=== PATIENT | male | born 1965 | race Hispanic/Latino ===

== ENCOUNTER 2022-03-11 02:22 | Inpatient (IN) | payer MEDICARE ==
[2022-03-11] MEDS ORDERED: ALBUTEROL 2.5 MG/3 ML NEBU IH ONE (05:59)
[2022-03-11] MEDS ORDERED: IPRATROPIUM 0.02% NEBU 2.5 ML IH ONE (05:59)
[2022-03-11 06:05] LABS: Color,Urine Straw (Yellow)
[2022-03-11 06:06] LABS: Granular Casts,Urine 6 /LPF; Mucus,Urine FEW /HPF
[2022-03-11 06:12] LABS: Amphetamine Screen,Urine PRESUMPTIVE POSITIVE; Benzodiazepines Screen,Urine PRESUMPTIVE POSITIVE; Cannabinoid Screen,Urine PRESUMPTIVE NEGATIVE; Cocaine Screen,Urine PRESUMPTIVE NEGATIVE; Methadone Screen,Urine PRESUMPTIVE NEGATIVE; Opiate Screen,Urine PRESUMPTIVE NEGATIVE
[2022-03-11 06:28] LABS: Basophils % (Auto) 0.3 % (0.0-1.8); Eosinophils % (Auto) 0.4 % (0.0-4.3); Hemoglobin 12.2 gm/dl (11.8-15.2); Lymphocytes # (Auto) 1.1 K/mm3 (1.2-5.4); Lymphocytes % (Auto) 16.5 % (13.4-35.0); Mean Corpuscular HGB Conc 32 % (32-34); Mean Corpuscular Volume 97 fl (84-94); Monocytes # (Auto) 0.6 K/mm3 (0.0-0.8); Monocytes % (Auto) 9.5 % (0.0-7.3); Platelet Count 202 K/mm3 (140-440); Red Cell Distribution Width 19.8 % (13.2-15.2)
[2022-03-11 06:46] LABS: Blood Urea Nitrogen 10 mg/dL (9-20); Calcium 8.7 mg/dL (8.4-10.2); Hemolysis Index 5
--- NOTE | 2022-03-11 07:01 | Emergency Department Report ---
ED Shortness of Breath HPI - General Chief Complaint: Overdose Stated Complaint: RESPITORY DISTRESS Time Seen by Provider: 03/11/22 06:54 Source: patient, EMS Mode of arrival: Stretcher Limitations: No Limitations, Other - History of Present Illness Initial Comments: 56-year-old male with history of COPD and alcohol abuse presents to the emergency department after being found blue and unresponsive this morning per EMS. Patient was given 2 mg of Narcan, and woke up immediately. Patient denies using drugs. Patient reports that he was having a COPD exacerbation last night, and although he took albuterol, he still "passed out". Patient reports similar in the past. Patient denies depression, suicidal ideations, or homicidal ideations. Denies intentional harm. Patient is alert and oriented, now, and reports improvement of his shortness of breath with albuterol and Atrovent, given to him here. However, patient complains of severe, sharp, right lower quadrant pain which is nonradiating for the last 4 days. Patient denies alleviating or aggravating factors in regards to the abdominal pain. Patient denies headache, nausea, vomiting, constipation, or fever. Patient denies dysuria or other symptoms. - Related Data Home Medications Medication Instructions Recorded Confirmed Last Taken ALPRAZolam [Xanax TAB] 1 mg PO BID PRN 03/11/22 03/11/22 Unknown Metoprolol Tartrate [Lopressor] 25 mg PO DAILY 03/11/22 03/11/22 Unknown Sertraline HCl [Zoloft] 100 mg PO DAILY 03/11/22 03/11/22 Unknown Tamsulosin [Flomax] 0.4 mg PO QDAY 03/11/22 03/11/22 Unknown Trazodone HCl 100 mg PO DAILY 03/11/22 03/11/22 Unknown Allergies Allergy/AdvReac Type Severity Reaction Status Date / Time No Known Allergies Allergy Verified 11/04/18 23:41 ED Review of Systems ROS: Stated complaint: RESPITORY DISTRESS Other details as noted in HPI Comment: All other systems reviewed and negative Constitutional: denies: chills, fever Eyes: denies: eye pain, eye discharge, vision change ENT: denies: ear pain, throat pain Respiratory: shortness of breath, wheezing. denies: cough Cardiovascular: denies: chest pain, palpitations Endocrine: no symptoms reported Gastrointestinal: abdominal pain. denies: nausea, diarrhea Genitourinary: denies: urgency, dysuria Musculoskeletal: denies: back pain, joint swelling, arthralgia Skin: denies: rash, lesions Neurological: other (Unresponsiveness resolved now.). denies: headache, weakness, paresthesias Psychiatric: denies: anxiety, depression Hematological/Lymphatic: denies: easy bleeding, easy bruising ED Past Medical Hx - Past Medical History Previous Medical History?: Yes Hx Hypertension: Yes Hx Psychiatric Treatment: Yes (anxiety and depression etoh detox) Hx Asthma: Yes Hx COPD: Yes - Surgical History Past Surgical History?: Yes Additional Surgical History: right hand and thumb - Social History Smoking Status: Current Every Day Smoker Substance Use Type: None - Medications Home Medications: Home Medications Medication Instructions Recorded Confirmed Last Taken Type ALPRAZolam [Xanax TAB] 1 mg PO BID PRN 03/11/22 03/11/22 Unknown History Metoprolol Tartrate [Lopressor] 25 mg PO DAILY 03/11/22 03/11/22 Unknown History Sertraline HCl [Zoloft] 100 mg PO DAILY 03/11/22 03/11/22 Unknown History Tamsulosin [Flomax] 0.4 mg PO QDAY 03/11/22 03/11/22 Unknown History Trazodone HCl 100 mg PO DAILY 03/11/22 03/11/22 Unknown History ED Physical Exam - General Limitations: No Limitations, Other General appearance: alert, in no apparent distress - Head Head exam: Present: atraumatic, normocephalic - Eye Eye exam: Present: normal appearance, PERRL, EOMI - ENT ENT exam: Present: normal exam, mucous membranes moist - Neck Neck exam: Present: normal inspection. Absent: tenderness - Respiratory Respiratory exam: Present: normal lung sounds bilaterally, other (Tachypnea). Absent: respiratory distress, wheezes, rales, rhonchi - Cardiovascular Cardiovascular Exam: Present: regular rate, normal rhythm. Absent: systolic murmur, diastolic murmur, rubs, gallop - GI/Abdominal GI/Abdominal exam: Present: soft, tenderness, normal bowel sounds. Absent: distended, guarding, rebound (Right lower quadrant tenderness), pulsatile mass - Rectal Rectal exam: Present: deferred - Extremities Exam Extremities exam: Present: normal inspection - Back Exam Back exam: Present: normal inspection. Absent: CVA tenderness (L) - Neurological Exam Neurological exam: Present: alert, oriented X3, CN II-XII intact - Psychiatric Psychiatric exam: Present: normal affect, normal mood - Skin Skin exam: Present: warm, dry, intact, normal color. Absent: rash ED Course Vital Signs 03/11/22 03/11/22 03/11/22 02:22 06:07 06:24 Temperature 98 F Pulse Rate 88 Pulse Rate [ 103 H Bilateral Throughout] Respiratory 18 Rate Respiratory 25 H Rate [Bilateral Throughout] Blood Pressure 100/64 Blood Pressure [Left] O2 Sat by Pulse 92 97 Oximetry 03/11/22 03/11/22 03/11/22 07:08 07:16 07:30 Temperature Pulse Rate 107 H 95 H 99 H Pulse Rate [ Bilateral Throughout] Respiratory 18 17 23 Rate Respiratory Rate [Bilateral Throughout] Blood Pressure Blood Pressure [Left] O2 Sat by Pulse 96 97 97 Oximetry 03/11/22 03/11/22 03/11/22 08:06 08:16 08:22 Temperature Pulse Rate 103 H 93 H 92 H Pulse Rate [ Bilateral Throughout] Respiratory 25 H 18 15 Rate Respiratory Rate [Bilateral Throughout] Blood Pressure 130/78 Blood Pressure 132/83 [Left] O2 Sat by Pulse 96 99 Oximetry 03/11/22 03/11/22 03/11/22 08:30 08:46 09:00 Temperature Pulse Rate 95 H 93 H 93 H Pulse Rate [ Bilateral Throughout] Respiratory 22 20 22 Rate Respiratory Rate [Bilateral Throughout] Blood Pressure 130/78 131/76 131/76 Blood Pressure [Left] O2 Sat by Pulse 94 95 94 Oximetry 03/11/22 09:16 Temperature Pulse Rate 94 H Pulse Rate [ Bilateral Throughout] Respiratory 19 Rate Respiratory Rate [Bilateral Throughout] Blood Pressure 134/77 Blood Pressure [Left] O2 Sat by Pulse 95 Oximetry ED Medical Decision Making - Lab Data Result diagrams: 03/11/22 06:03 03/11/22 06:03 - Radiology Data Radiology results: report reviewed CT abdomen pelvis:IMPRESSION: 1. No acute abdominopelvic process demonstrated. Specifically, no evidence to indicate appendicitis. 2. Indeterminate left adrenal nodule, possibly an adenoma. Routine adrenal protocol CT follow-up is recommended to complete the evaluation. Signer Name: Saleem Colbert MD - Medical Decision Making Is a 56-year-old male with history of COPD, alcohol abuse, anxiety and depre ssion who presented to the emergency department after being found unresponsive and blue with presumptive diagnosis of opiate overdose, as he responded to Narcan IV. Patient is alert and oriented on exam, but complains of severe right lower quadrant pain for the last 4 days. Vital signs are essentially unremarkable except for tachypnea. Physical exam is remarkable for mild tachypnea and right lower quadrant tenderness. Lab work was concerning for elevated PCO2, which is consistent with his history of COPD. Additionally, his urine toxicology was positive for amphetamines and for benzodiazepines, which could have contributed to his condition on EMS arrival. His chest x-ray does not show any acute findings, and his abdominal CT scan does not show any findings that could explain his right lower quadrant pain. Patient will be discharged home with diagnoses of abdominal pain NOS and COPD exacerbation with possible unintentional overdose. Critical care attestation.: If time is entered above; I have spent that time in minutes in the direct care of this critically ill patient, excluding procedure time. ED Disposition Clinical Impression: COPD (chronic obstructive pulmonary disease) Qualifiers: COPD type: COPD with acute exacerbation Qualified Code(s): J44.1 - Chronic obstructive pulmonary disease with (acute) exacerbation Alcohol withdrawal Qualifiers: Complication of substance-induced condition: with unspecified complication Qualified Code(s): F10.939 - Alcohol use, unspecified with withdrawal, unspecified Disposition: 09 ADMITTED INPATIENT Is pt being admited?: Yes Condition: Stable Instructions: Chronic Obstructive Pulmonary Disease (ED) Referrals: PRIMARY CAREMD [Primary Care Provider] - 3-5 Days Time of Disposition: 13:04
[2022-03-11 07:04] LABS: BUN/Creatinine Ratio 17
--- NOTE | 2022-03-11 07:39 | XRay Report ---
CHEST 1 VIEW INDICATION / CLINICAL INFORMATION: shortness of breath. COMPARISON: 11/04/2018 FINDINGS: SUPPORT DEVICES: None. HEART / MEDIASTINUM: No significant abnormality. LUNGS / PLEURA: The lungs are hyperinflated suggesting COPD. No superimposed acute pulmonary or pleur al disease is noted. Overall appearance is stable compared with older exam. No pneumothorax. ADDITIONAL FINDINGS: No significant additional findings. IMPRESSION: 1. Hyperinflation consistent with COPD. No acute superimposed disease noted. Signer Name: Nicole Church MD Signed: 03/11/2022 7:35 AM Workstation Name: [id number]
--- NOTE | 2022-03-11 08:08 | Cat Scan Report ---
CT ABDOMEN AND PELVIS WITH CONTRAST INDICATION / CLINICAL INFORMATION: rlq pain r/o appendicitis. TECHNIQUE: Axial CT images were obtained through the abdomen and pelvis after IV contrast. All CT sc ans at this location are performed using CT dose reduction for ALARA by means of automated exposure c ontrol. COMPARISON: None available. FINDINGS: LOWER CHEST: No significant abnormality. LIVER: No significant abnormality. GALLBLADDER: No significant abnormality. BILE DUCTS: No significant abnormality. PANCREAS: No significant abnormality. SPLEEN: No significant abnormality. ADRENALS: 2.4 cm left adrenal nodule. RIGHT KIDNEY / URETER: No significant abnormality. LEFT KIDNEY / URETER: No significant abnormality. STOMACH / SMALL BOWEL: No significant abnormality. COLON: Diverticulosis distally. No acute inflammatory change. APPENDIX: No significant abnormality. PERITONEUM: No free fluid. No free air. No fluid collection. LYMPH NODES: No significant adenopathy. AORTA / ARTERIES: Atherosclerosis. IVC / VEINS: No significant abnormality. URINARY BLADDER: No significant abnormality. REPRODUCTIVE ORGANS: No significant abnormality. ADDITIONAL FINDINGS: None. SKELETAL SYSTEM: No significant abnormality. IMPRESSION: 1. No acute abdominopelvic process demonstrated. Specifically, no evidence to indicate appendicitis. 2. Indeterminate left adrenal nodule, possibly an adenoma. Routine adrenal protocol CT follow-up is r ecommended to complete the evaluation. Signer Name: Saleem Colbert MD Signed: 03/11/2022 8:04 AM Workstation Name: [id number]
[2022-03-11 08:45] LABS: Alanine Aminotransferase 55 units/L (7-56); Albumin 3.7 g/dL (3.9-5)
[2022-03-11 09:06] LABS: Bilirubin,Direct < 0.2 mg/dL (0-0.2)
[2022-03-11] MEDS ORDERED: LORazepam 1 MG TAB PO ONE (09:47)
[2022-03-11] MEDS ORDERED: ONDANSETRON 4 MG/2 ML INJ IV ONE (09:47)
[2022-03-11] MEDS ORDERED: HYDROmorphone 0.5 MG/0.5 ML INJ IV PRN (12:08)
[2022-03-11] MEDS ORDERED: ONDANSETRON 4 MG/2 ML INJ IV PRN (12:08)
--- NOTE | 2022-03-11 12:08 | History and Physical Report ---
History of Present Illness Chief complaint: Confused and unresponsive History of present illness: 56 YO Male with COPD on Home Oxygen @4l VIA NC, MDD, ROHIT, ETOH Dependence, Nicotine Dependence presents to ED for evaluation. Patient has diminished cognition and only provides minimal history. Patient reports "I passed out". Patient also acknowledges abdominal discomfort over the last 4 days. Patient was found down and unresponsive. EMS was notified and upon arrival the patient was found to be in distress and treated with 2 mg of Narcan with improvement in symptoms. Patient transported to [facility] for further care and evaluation of the aforementioned symptoms. The patient was seen and evaluated in the emergency department. All lab and imaging studies reviewed. Patient found to be agitated, tremulous, diaphoretic, incoherent, complaining of abdominal discomfort. Patient found to have clinical symptoms consistent with delirium tremens, alcohol withdrawal syndrome, volume depletion, as well as metabolic encephalopathy. Patient admitted to medical floor due to increased risk of worsening symptoms after medical stabilization. Patient treated with IV fluid resuscitation therapy and initiation of CIWA protocol. No reports of fever, chills, chest pain, palpitation, adductive cough, skin rash, recent co ntact, trauma, or known exposure to COVID-19. Prior admission on 11/05/2018 reviewed. All medication listed at time of admission has been reconciled. Advanced care planning conducted in ED. Past History Past Medical History: COPD, other (See HPI) Past Surgical History: Other (Hand and thumb surgery) Social history: , lives with family, smoking, alcohol abuse Family history: hypertension Medications and Allergies Allergies Allergy/AdvReac Type Severity Reaction Status Date / Time No Known Allergies Allergy Verified 11/04/18 23:41 Home Medications Medication Instructions Recorded Confirmed Last Taken Type ALPRAZolam [Xanax TAB] 1 mg PO BID PRN 03/11/22 03/11/22 Unknown History Metoprolol Tartrate [Lopressor] 25 mg PO DAILY 03/11/22 03/11/22 Unknown History Sertraline HCl [Zoloft] 100 mg PO DAILY 03/11/22 03/11/22 Unknown History Tamsulosin [Flomax] 0.4 mg PO QDAY 03/11/22 03/11/22 Unknown History Trazodone HCl 100 mg PO DAILY 03/11/22 03/11/22 Unknown History Review of Systems ROS unobtainable: due to mental status Exam - Constitutional Vitals: Temp Pulse Resp BP Pulse Ox 98 F 94 H 19 134/77 95 03/11/22 02:22 03/11/22 09:16 03/11/22 09:16 03/11/22 09:16 03/11/22 09:16 General appearance: Present: mild distress - EENT Eyes: Present: PERRL ENT: hearing intact, clear oral mucosa - Neck Neck: Present: supple, normal ROM - Respiratory Respiratory effort: normal Respiratory: bilateral: CTA - Cardiovascular Rhythm: regular (Tachycardia) - Extremities Extremities: pulses symmetrical, No edema Peripheral Pulses: within normal limits - Abdominal General gastrointestinal: Present: soft, non-tender, non-distended, normal bowel sounds Male genitourinary: Present: normal - Integumentary Integumentary: Present: clear, clammy, decreased turgor - Musculoskeletal Musculoskeletal: generalized weakness - Psychiatric Psychiatric: no appropriate mood/affect, no memory intact, agitated - Neurologic Neurologic: CNII-XII intact, no focal deficits, moves all extremities, no gait normal Results - Labs CBC & Chem 7: 03/11/22 06:03 03/11/22 06:03 Labs: Abnormal lab results 03/11/22 03/11/22 03/11/22 Range/Units 06:03 06:03 06:03 MCV (84-94) fl RDW (13.2-15.2) % Kidder % (Auto) (0.0-7.3) % Lymph # (Auto) (1.2-5.4) K/mm3 Seg Neutrophils % (40.0-70.0) % Chloride 92.7 L (98-107) mmol/L Carbon Dioxide 37 H (22-30) mmol/L Creatinine 0.6 L (0.8-1.3) mg/dL Glucose 116 H (75-100) mg/dL AST (5-40) units/L Total Protein (6.3-8.2) g/dL Albumin (3.9-5) g/dL Salicylates 1.9 L (2.8-20.0) mg/dL Acetaminophen 5.0 L (10.0-30.0) ug/mL Plasma/Serum Alcohol (0-0.07) % 09/18/22 09/18/22 09/18/22 Range/Units 06:03 06:03 07:32 MCV 97 H (84-94) fl RDW 19.8 H (13.2-15.2) % Kidder % (Auto) 9.5 H (0.0-7.3) % Lymph # (Auto) 1.1 L (1.2-5.4) K/mm3 Seg Neutrophils % 73.3 H (40.0-70.0) % Chloride (98-107) mmol/L Carbon Dioxide (22-30) mmol/L Creatinine (0.8-1.3) mg/dL Glucose (75-100) mg/dL AST 60 H (5-40) units/L Total Protein 5.4 L (6.3-8.2) g/dL Albumin 3.7 L (3.9-5) g/dL Salicylates (2.8-20.0) mg/dL Acetaminophen (10.0-30.0) ug/mL Plasma/Serum Alcohol 0.13 H (0-0.07) % Assessment and Plan - Patient Problems (1) Delirium tremens Current Visit: Yes Status: Acute Plan to address problem: CIWA protocol: Banana bag, IV fluid resuscitation therapy, seizure precaution, aspiration precautions, fall precautions, benzodiazepine therapy as clinically indicated (2) Alcohol withdrawal syndrome Current Visit: Yes Status: Acute Qualifiers: Complication of substance-induced condition: with delirium Qualified Code(s): F10.931 - Alcohol use, unspecified with withdrawal delirium Plan to address problem: IV for resuscitation therapy, banana bag, supportive care, continue medical management. Telemetry monitoring. Antiemetic therapy as clinically indicated. (3) COPD (chronic obstructive pulmonary disease) Current Visit: Yes Status: Acute Plan to address problem: Supplemental oxygen, pulse oximetry, nebulizer therapy, bronchodilator therapy as clinically indicated. No acute exacerbation at this time. Continue to monitor. (4) Volume depletion Current Visit: Yes Status: Acute Plan to address problem: IV fluid resuscitation therapy, BMP, repeat BMP in a.m., monitor fluid balance. (5) Nicotine dependence Current Visit: Yes Status: Acute Qualifiers: Nicotine product type: cigarettes Substance use status: in withdrawal Qualified Code(s): F17.213 - Nicotine dependence, cigarettes, with withdrawal Plan to address problem: Smoking cessation counseling, supportive care, nicotine transdermal patch daily, remove nightly. (6) Major depression Current Visit: Yes Status: Acute Plan to address problem: Continue medical management, cognitive behavioral therapy, mental health team consulted. (7) Generalized anxiety disorder Current Visit: Yes Status: Acute Plan to address problem: Benzodiazepine therapy as clinically indicated, mental health team consulted. (8) DVT prophylaxis Current Visit: Yes Status: Acute Plan to address problem: SCD to bilateral lower extremities while in bed (9) Advance care planning Current Visit: Yes Status: Acute Plan to address problem: Disease education data, care plan discussed, diagnoses discussed, prognosis discussed, patient is full code, +30 minutes. (10) Preventative health care Current Visit: Yes Status: Acute Plan to address problem: Patient instructed to follow-up with Alcoholics Anonymous at discharge, outpatient follow-up with primary care physician for all age and risk factor appropriate screening test. +30 minutes.
[2022-03-11] MEDS ORDERED: LORazepam 2 MG/ML VIAL IV PRN (12:12)
[2022-03-11] MEDS ORDERED: THIAMINE 100 MG, FOLIC ACID 1 MG, MULTIPLE VITAMIN INJ, ADULT 10 ML in SODIUM CHLORIDE ... IV ONE (13:00)
[2022-03-11] MEDS: NICOTINE 14 MG/24 HR PATCH TD SCH (13:35)
[2022-03-11] MEDS: GABAPENTIN 300 MG CAP PO SCH ×2 (13:35→21:49)
--- NOTE | 2022-03-11 15:31 | Consultation ---
History of Present Illness - Reason for Consult Consult date: 03/11/22 Reason for consult: Overdose - Chief Complaint Chief complaint: Confused and unresponsive - History of Present Psychiatric Illness ED Note: 56-year-old male with history of COPD and alcohol abuse presents to the emergency department after being found blue and unresponsive this morning per EMS. Patient was given 2 mg of Narcan, and woke up immediately. Patient denies using drugs. Patient reports that he was having a COPD exacerbation last night, and although he took albuterol, he still "passed out". Patient reports similar in the past. Patient denies depression, suicidal ideations, or homicidal ideations. Denies intentional harm. Patient is alert and oriented, now, and reports improvement of his shortness of breath with albuterol and Atrovent, given to him here. However, patient complains of severe, sharp, right lower quadrant pain which is nonradiating for the last 4 days. Patient denies alleviating or aggravating factors in regards to the abdominal pain. Patient denies headache, nausea, vomiting, constipation, or fever. Patient denies dysuria or other symptoms. Patient is a 56 year-old male with history of MDD, ROHIT, and polysubstance abuse who presents to ER via EMS after suspected overdose. Patient arrives to ER because "I had a seizure last night and my heart stopped beating," while administering a breathing treatment. Patient denies history of seizures but endorses alcohol use of 1/2 pint liquor and 2-3 beers a day for several years. Patient also reports history of abusing meth, cocaine, and marijuana years ago. Patient reports being depressed since being diagnosed with COPD in 2017. Patient reports 2 suicide attempts "in early " with sleeping pills, but denies suicidal ideation in the last 10 months. Patient reports being seen by outpatient psychiatry and is compliant with medications zoloft 100 mg qd and xanax qd. Patient denies SI HI AVH at this time. Patient reports interest in reducing alcohol intake and entering alcohol rehabilitation program. PAST PSYCHIATRIC HISTORY: Diagnoses: Major depressive disorder, generalized anxiety disorder, alcohol abuse Suicide attempts or Self-harm behavior: Yes over 20 years ago Prior psychiatric hospitalizations: Yes Substance Abuse history: Yes Previous psychiatric medications tried: Zoloft, xanax Outpatient treatment: Yes Family Psychiatric History: None reported SOCIAL HISTORY Marital Status: Single Living Arrangements: Alone Employment Status: Disability Access to guns/weapons: Denies Education: Some college History of Abuse: Yes Legal History: Denies MENTAL STATUS EXAMINATION General Appearance and Behavior: Age appropriate, wearing appropriate clothes, cooperative, polite with questioning, fair eye contact Cooperation: Cooperative Psychomotor Behavior: Psychomotor normal Mood: depressed Affect and affective range: congruent with stated affect Thought Process: Goal oriented Thought Content: Reality-based Speech: Normal volume, Regular rate and rhythm Suicidal Ideation: Denies Homicidal Ideation: Denies Hallucination: Denies Delusions: Denies Impulse Control: Normal Insight and Judgment: Normal Memory: Intact Attention: Attentive Orientation: Alert and oriented Diagnoses: Alcohol abuse disorder Major depressive disorder Anxiety disorder TREATMENT: - Enroll in drug rehabilitation program for alcohol abuse - Continue psychiatric medication management in outpatient setting Risks, benefits and alternatives of medications discussed with the patient, questions answered and consent obtained from patient. The patient should be compliant with medications, not to use drugs, and not to drink alcohol. The patient understands that if suicidal ideas, homicidal ideas or any endangering feeling arise, the patient should seek assistance including, but not limited to crisis hotline, and emergency room. PSYCHOTHERAPY: Supportive psychotherapy provided MEDICAL: Per primary team DELIRIUM PRECAUTIONS: Please re-orient patient frequently, keep lights on during the day, and minimize benzodiazepines and opiates as these medications could worsen patient's confusion. COLLECTIONS TECHNICIAN: Defer to primary DISPOSITION: Do not recommend acute inpatient psychiatric hospitalization at this time. Mental health lamination technician will provide outpatient psychiatric resources and information on drug rehabilitation programs. FOLLOW-UP: Will sign off. Thank you for the consult. Please contact with any questions and/or concerns. Case staffed with Dr. Molly Beltran. Medications and Allergies Allergies Allergy/AdvReac Type Severity Reaction Status Date / Time No Known Allergies Allergy Verified 11/04/18 23:41 Home Medications Medication Instructions Recorded Confirmed Last Taken Type ALPRAZolam [Xanax TAB] 1 mg PO BID PRN 03/11/22 03/11/22 Unknown History Metoprolol Tartrate [Lopressor] 25 mg PO DAILY 03/11/22 03/11/22 Unknown History Sertraline HCl [Zoloft] 100 mg PO DAILY 03/11/22 03/11/22 Unknown History Tamsulosin [Flomax] 0.4 mg PO QDAY 03/11/22 03/11/22 Unknown History Trazodone HCl 100 mg PO DAILY 03/11/22 03/11/22 Unknown History Active Meds: Active Medications Acetaminophen (Acetaminophen 325 Mg Tab) 650 mg PO Q4H PRN PRN Reason: Pain MILD(1-3)/Fever >100.5/[place] Albuterol (Albuterol 2.5 Mg/3 Ml Nebu) 2.5 mg IH Q4H PRN PRN Reason: Shortness Of Breath Amlodipine Besylate (Amlodipine 10 Mg Tab) 10 mg PO DAILY [facility] Buspirone HCl (Buspirone 5 Mg Tab) 7.5 mg PO BID [facility] Folic Acid (Folic Acid 1 Mg Tab) 1 mg PO QDAY [facility] Gabapentin (Gabapentin 300 Mg Cap) 300 mg PO Q8HR [facility] Last Admin: 03/11/22 13:35 Dose: 300 mg Hydromorphone HCl (Hydromorphone 0.5 Mg/0.5 Ml Inj) 0.5 mg IV Q13H PRN PRN Reason: Pain , Severe (7-10) Sodium Chloride (Nacl 0.9% 1000 Ml) 1,000 mls @ 150 mls/hr IV DIRECT [facility]ICA Thiamine HCl 100 mg/ Folic Acid 1 mg/ Multivitamins/Minerals 10 ml/ Sodium Ch loride 1,011.2 mls @ 250 mls/hr IV ONCE ONE Stop: 03/11/22 17:02 Last Admin: 03/11/22 12:46 Dose: 250 mls/hr Lorazepam (Lorazepam 2 Mg/Ml Vial) 2 mg IV Q1H PRN PRN Reason: CIWA-Ar 8-15 Lorazepam (Lorazepam 2 Mg/Ml Vial) 4 mg IV Q1H PRN PRN Reason: CIWA-Ar 16-25 Multivitamins (Multivitamins ,Therapeutic Tab) 1 each PO ONCE ONE Stop: 03/12/22 12:01 Nicotine (Nicotine 14 Mg/24 Hr Patch) 14 mg TD DAILY [facility] Last Admin: 03/11/22 13:35 Dose: 14 mg Ondansetron HCl (Ondansetron 4 Mg/2 Ml Inj) 4 mg IV Q8H PRN PRN Reason: Nausea And Vomiting Oxycodone/Acetaminophen (Oxycodone /Acetaminophen 5-325mg Tab) 1 tab PO Q16H PRN PRN Reason: Pain, Moderate (4-6) Pantoprazole Sodium (Pantoprazole 40 Mg Tab) 40 mg PO QDAY CHICA Paroxetine HCl (Paroxetine 20 Mg Tab) 20 mg PO DAILY [facility] Sodium Chloride (Sodium Chloride 0.9% 10 Ml Flush Syringe) 10 ml IV BID CHICA Sodium Chloride (Sodium Chloride 0.9% 10 Ml Flush Syringe) 10 ml IV PRN PRN PRN Reason: LINE FLUSH Thiamine HCl (Thiamine 100 Mg Tab) 100 mg PO ONCE ONE Stop: 03/12/22 12:01 Trazodone HCl (Trazodone 100 Mg Tab) 100 mg PO QHS [facility] Mental Status Exam - Vital signs Last Vital Signs Temp 98 F 03/11/22 02:22 Pulse 94 H 03/11/22 09:16 Resp 19 03/11/22 09:16 BP 134/77 03/11/22 09:16 Pulse Ox 95 03/11/22 09:16 Results Result Diagrams: 03/11/22 06:03 03/11/22 06:03 Abnormal lab results 03/11/22 03/11/22 03/11/22 Range/Units 06:03 06:03 06:03 MCV (84-94) fl RDW (13.2-15.2) % [place] % (Auto) (0.0-7.3) % Lymph # (Auto) (1.2-5.4) K/mm3 Seg Neutrophils % (40.0-70.0) % Chloride 92.7 L (98-107) mmol/L Carbon Dioxide 37 H (22-30) mmol/L Creatinine 0.6 L (0.8-1.3) mg/dL Glucose 116 H (75-100) mg/dL AST (5-40) units/L Total Protein (6.3-8.2) g/dL Albumin (3.9-5) g/dL Salicylates 1.9 L (2.8-20.0) mg/dL Acetaminophen 5.0 L (10.0-30.0) ug/mL Plasma/Serum Alcohol (0-0.07) % 03/11/22 03/11/22 03/11/22 Range/Units 06:03 06:03 07:32 MCV 97 H (84-94) fl RDW 19.8 H (13.2-15.2) % [place] % (Auto) 9.5 H (0.0-7.3) % Lymph # (Auto) 1.1 L (1.2-5.4) K/mm3 Seg Neutrophils % 73.3 H (40.0-70.0) % Chloride (98-107) mmol/L Carbon Dioxide (22-30) mmol/L Creatinine (0.8-1.3) mg/dL Glucose (75-100) mg/dL AST 60 H (5-40) units/L Total Protein 5.4 L (6.3-8.2) g/dL Albumin 3.7 L (3.9-5) g/dL Salicylates (2.8-20.0) mg/dL Acetaminophen (10.0-30.0) ug/mL Plasma/Serum Alcohol 0.13 H (0-0.07) % All other labs normal.
[2022-03-11] MEDS: ALBUTEROL 2.5 MG/3 ML NEBU IH PRN (16:16)
[2022-03-11] MEDS: SODIUM CHLORIDE 0.9% 1000 ML 1,000 ML IV SCH (16:34)
[2022-03-11] MEDS: LORazepam 2 MG/ML VIAL IV PRN (20:49)
[2022-03-11] MEDS: traZODone 100 MG TAB PO SCH (21:49)
[2022-03-11] MEDS: busPIRone 5 MG TAB PO SCH (21:49)
[2022-03-12] MEDS: GABAPENTIN 300 MG CAP PO SCH ×3 (05:50→22:04)
[2022-03-12] MEDS: LORazepam 2 MG/ML VIAL IV PRN ×4 (05:50→22:04)
[2022-03-12] MEDS: ALBUTEROL 2.5 MG/3 ML NEBU IH PRN ×3 (06:00→21:20)
[2022-03-12] MEDS: SODIUM CHLORIDE 0.9% 1000 ML 1,000 ML IV SCH (06:39)
[2022-03-12 06:47] LABS: Blood Urea Nitrogen 9 mg/dL (9-20); Hemolysis Index 71
[2022-03-12 07:04] LABS: BUN/Creatinine Ratio 18
--- NOTE | 2022-03-12 09:48 | Progress Note ---
Assessment and Plan Assessment and plan: 56 YO Male with COPD on Home Oxygen @4l VIA [place], MDD, ROHIT, ETOH Dependence, Nicotine Dependence presents to ED for evaluation of diminished cognition and syncope. Patient also reports abdominal discomfort over the last 4 days. Patient was found down and unresponsive. EMS was notified and upon arrival the patient was found to be in distress and treated with 2 mg of Narcan with improvement in symptoms. Patient transported to [facility] for further care and evaluation of the aforementioned symptoms. The patient was seen and evaluated in the emergency department. All lab and imaging studies reviewed. Patient admitted with diagnosis of delirium tremens, alcohol withdrawal syndrome, volume depletion, as well as metabolic encephalopathy. Delirium tremens Alcohol withdrawal syndrome Polysubstance abuse COPD, compensated Volume depletion Nicotine dependence Major depression Generalized anxiety disorder 03/12/2022. The patient's most recent CIWA score was 9. Patient continues to be tremulous and unsteady. Continue CIWA protocol. Patient denies any suicidal ideation in the last 10 months. Psychiatry reports that the patient is being seen by outpatient psychiatry and is compliant with medications zoloft 100 mg qd and xanax qd. Patient denies SI HI AVH at this time. Patient reports interest in reducing alcohol intake and entering alcohol rehabilitation program. UDS was also positive for amphetamines. History Interval history: No new issues overnight Hospitalist Physical - Constitutional Vitals: Temp Pulse Resp BP Pulse Ox 98.7 F 94 H 22 168/94 98 03/11/22 19:35 03/12/22 06:00 03/12/22 06:00 03/11/22 20:45 03/12/22 05:49 General appearance: Present: no acute distress - EENT Eyes: Present: PERRL, EOM intact ENT: hearing intact, clear oral mucosa, dentition normal - Neck Neck: Present: supple, normal ROM - Respiratory Respiratory effort: normal Respiratory: bilateral: CTA - Cardiovascular Rhythm: regular Heart Sounds: Present: S1 & S2. Absent: gallop, rub - Extremities Extremities: no ischemia, No edema, Full ROM - Abdominal General gastrointestinal: soft, non-tender, non-distended, normal bowel sounds - Integumentary Integumentary: Present: clear, warm, dry - Neurologic Neurologic: CNII-XII intact, moves all extremities Results - Labs CBC & Chem 7: 03/11/22 06:03 03/12/22 05:26 Labs: Laboratory Last Values WBC 6.4 K/mm3 (4.5-11.0) 03/11/22 06:03 RBC 3.90 M/mm3 (3.65-5.03) 03/11/22 06:03 Hgb 12.2 gm/dl (11.8-15.2) 03/11/22 06:03 Hct 38.0 % (35.5-45.6) 03/11/22 06:03 MCV 97 fl (84-94) H 03/11/22 06:03 MCH 31 pg (28-32) 03/11/22 06:03 MCHC 32 % (32-34) 03/11/22 06:03 RDW 19.8 % (13.2-15.2) H 03/11/22 06:03 Plt Count 202 K/mm3 (140-440) 03/11/22 06:03 Lymph % (Auto) 16.5 % (13.4-35.0) 03/11/22 06:03 [place] % (Auto) 9.5 % (0.0-7.3) H 03/11/22 06:03 Eos % (Auto) 0.4 % (0.0-4.3) 03/11/22 06:03 Baso % (Auto) 0.3 % (0.0-1.8) 03/11/22 06:03 Lymph # (Auto) 1.1 K/mm3 (1.2-5.4) L 03/11/22 06:03 [place] # (Auto) 0.6 K/mm3 (0.0-0.8) 03/11/22 06:03 Eos # (Auto) 0.0 K/mm3 (0.0-0.4) 03/11/22 06:03 Baso # (Auto) 0.0 K/mm3 (0.0-0.1) 03/11/22 06:03 Seg Neutrophils % 73.3 % (40.0-70.0) H 03/11/22 06:03 Seg Neutrophils # 4.7 K/mm3 (1.8-7.7) 03/11/22 06:03 Sodium 140 mmol/L (137-145) 03/12/22 05:26 Potassium 4.4 mmol/L (3.6-5.0) 03/12/22 05:26 Chloride 99.1 mmol/L (98-107) 03/12/22 05:26 Carbon Dioxide 33 mmol/L (22-30) H 03/12/22 05:26 Anion Gap 12 mmol/L 03/12/22 05:26 BUN 9 mg/dL (9-20) 03/12/22 05:26 Creatinine 0.5 mg/dL (0.8-1.3) L 03/12/22 05:26 Estimated GFR > 60 ml/min 03/12/22 05:26 BUN/Creatinine Ratio 18 % 03/12/22 05:26 Glucose 96 mg/dL (75-100) 03/12/22 05:26 Calcium 8.0 mg/dL (8.4-10.2) L 03/12/22 05:26 Total Bilirubin 0.20 mg/dL (0.1-1.2) 03/11/22 07:32 Direct Bilirubin < 0.2 mg/dL (0-0.2) 03/11/22 07:32 Indirect Bilirubin 0.0 mg/dL 03/11/22 07:32 AST 60 units/L (5-40) H 03/11/22 07:32 ALT 55 units/L (7-56) 03/11/22 07:32 Alkaline Phosphatase 99 units/L (35-129) 03/11/22 07:32 Total Protein 5.4 g/dL (6.3-8.2) L 03/11/22 07:32 Albumin 3.7 g/dL (3.9-5) L 03/11/22 07:32 Albumin/Globulin Ratio 2.2 % 03/11/22 07:32 Lipase 20 units/L (13-60) 03/11/22 07:32 Urine Color Straw (Yellow) 03/11/22 02:22 Urine Turbidity Clear (Clear) 03/11/22 02:22 Specific [place] (Man) 1.015 (1.003-1.030) 03/11/22 02:22 Ur Protein (Man) 1+ mg/dL (Negative) 03/11/22 02:22 Ur Ketones (Man) Negative (Negative) 03/11/22 02:22 Ur Nitrite (Man) Negative (Negative) 03/11/22 02:22 Urine Bilirubin (Man) Negative (Negative) 03/11/22 02:22 Leukocyte Esterase (Man) Negative (Negative) 03/11/22 02:22 Urine WBC (Auto) 3.0 /HPF (0.0-6.0) 03/11/22 02:22 Urine RBC (Auto) 1.0 /HPF (0.0-6.0) 03/11/22 02:22 U Epithel Cells (Auto) < 1.0 /HPF (0-13.0) 03/11/22 02:22 Urine RBC (Manual) Negative (Negative) 03/11/22 02:22 Granular Casts 6 /LPF 03/11/22 02:22 Urine Mucus Few /HPF 03/11/22 02:22 Salicylates 1.9 mg/dL (2.8-20.0) L 03/11/22 06:03 Urine Opiates Screen Presumptive negative 03/11/22 02:22 Urine Methadone Screen Presumptive negative 03/11/22 02:22 Acetaminophen 5.0 ug/mL (10.0-30.0) L 03/11/22 06:03 Ur Barbiturates Screen Presumptive negative 03/11/22 02:22 Ur Phencyclidine Scrn Presumptive negative 03/11/22 02:22 Ur Amphetamines Screen Presumptive positive 03/11/22 02:22 U Benzodiazepines Scrn Presumptive positive 03/11/22 02:22 Urine Cocaine Screen Presumptive negative 03/11/22 02:22 U Marijuana (THC) Screen Presumptive negative 03/11/22 02:22 Drugs of Abuse Note Disclamer 03/11/22 02:22 Plasma/Serum Alcohol 0.13 % (0-0.07) H 03/11/22 06:03 So/IV: Voiding Method Condom Catheter Active Medications - Current Medications Current Medications: Generic Name Dose Route Start Last Admin Trade Name Freq PRN Reason Stop Dose Admin Acetaminophen 650 mg 03/11/22 12:08 Acetaminophen 325 Mg Tab PO Q4H PRN Pain MILD(1-3)/Fever >100.5/[place] Albuterol 2.5 mg 03/11/22 12:08 03/12/22 06:00 Albuterol 2.5 Mg/3 Ml Nebu IH 2.5 mg Q4H PRN Administration Shortness Of Breath Amlodipine Besylate 10 mg 03/12/22 10:00 Amlodipine 10 Mg Tab PO DAILY [facility] Buspirone HCl 7.5 mg 03/11/22 22:00 03/11/22 21:49 Buspirone 5 Mg Tab PO 7.5 mg BID CHICA Administration Folic Acid 1 mg 03/12/22 10:00 Folic Acid 1 Mg Tab PO QDAY [facility] Gabapentin 300 mg 03/11/22 14:00 03/12/22 05:50 Gabapentin 300 Mg Cap PO 300 mg Q8HR [facility] Administration Hydromorphone HCl 0.5 mg 03/11/22 12:08 Hydromorphone 0.5 Mg/0.5 Ml Inj IV Q13H PRN Pain , Severe (7-10) Sodium Chloride 1,000 mls @ 150 mls/hr 03/11/22 13:00 03/12/22 06:39 Nacl 0.9% 1000 Ml IV 150 mls/hr DIRECT CHICA Administration Lorazepam 2 mg 03/11/22 12:12 03/12/22 05:50 Lorazepam 2 Mg/Ml Vial IV 2 mg Q1H PRN Administration CIWA-Ar 8-15 Lorazepam 4 mg 03/11/22 12:12 03/11/22 16:28 Lorazepam 2 Mg/Ml Vial IV 4 mg Q1H PRN Administration CIWA-Ar 16-25 Multivitamins 1 each 03/12/22 12:00 Multivitamins ,Therapeutic Tab PO 03/12/22 12:01 ONCE ONE Nicotine 14 mg 03/11/22 13:00 03/11/22 13:35 Nicotine 14 Mg/24 Hr Patch TD 14 mg DAILY CHICA Administration Ondansetron HCl 4 mg 03/11/22 12:08 Ondansetron 4 Mg/2 Ml Inj IV Q8H PRN Nausea And Vomiting Oxycodone/Acetaminophen 1 tab 03/11/22 12:08 Oxycodone /Acetaminophen 5-325mg Tab PO Q16H PRN Pain, Moderate (4-6) Pantoprazole Sodium 40 mg 03/12/22 10:00 Pantoprazole 40 Mg Tab PO QDAY [facility]ICA Paroxetine HCl 20 mg 03/12/22 10:00 Paroxetine 20 Mg Tab PO DAILY [facility] Sodium Chloride 10 ml 03/11/22 22:00 03/11/22 21:49 Sodium Chloride 0.9% 10 Ml Flush Syringe IV 10 ml BID CHICA Administration Sodium Chloride 10 ml 03/11/22 12:08 Sodium Chloride 0.9% 10 Ml Flush Syringe IV PRN PRN LINE FLUSH Thiamine HCl 100 mg 03/12/22 12:00 Thiamine 100 Mg Tab PO 03/12/22 12:01 ONCE ONE Trazodone HCl 100 mg 03/11/22 22:00 03/11/22 21:49 Trazodone 100 Mg Tab PO 100 mg QHS [facility]ICA Administration
[2022-03-12] MEDS: NICOTINE 14 MG/24 HR PATCH TD SCH (10:41)
[2022-03-12] MEDS: amLODIPine 10 MG TAB PO SCH (10:41)
[2022-03-12] MEDS: PARoxetine 20 MG TAB PO SCH (10:42)
[2022-03-12] MEDS: PANTOPRAZOLE 40 MG TAB PO SCH (10:42)
[2022-03-12] MEDS: FOLIC ACID 1 MG TAB PO SCH (10:42)
[2022-03-12] MEDS: busPIRone 5 MG TAB PO SCH ×2 (11:00→22:03)
[2022-03-12] MEDS ORDERED: THIAMINE 100 MG TAB PO ONE ×2 (12:00→15:00)
[2022-03-12] MEDS ORDERED: MULTIVITAMINS ,THERAPEUTIC TAB PO ONE (12:00)
[2022-03-12] MEDS: traZODone 100 MG TAB PO SCH (22:03)
[2022-03-12] MEDS: oxyCODONE /ACETAMINOPHEN 5-325MG TAB PO PRN (22:04)
[2022-03-13] MEDS: GABAPENTIN 300 MG CAP PO SCH ×3 (05:29→22:42)
[2022-03-13] MEDS: ALBUTEROL 2.5 MG/3 ML NEBU IH PRN ×2 (10:20→18:30)
[2022-03-13] MEDS: oxyCODONE /ACETAMINOPHEN 5-325MG TAB PO PRN ×2 (12:54→18:35)
[2022-03-13] MEDS: LORazepam 2 MG/ML VIAL IV PRN ×3 (12:55→22:42)
[2022-03-13] MEDS: amLODIPine 10 MG TAB PO SCH (12:56)
[2022-03-13] MEDS: FOLIC ACID 1 MG TAB PO SCH (12:58)
[2022-03-13] MEDS: PARoxetine 20 MG TAB PO SCH (12:58)
[2022-03-13] MEDS: busPIRone 5 MG TAB PO SCH ×2 (12:58→22:42)
[2022-03-13] MEDS: PANTOPRAZOLE 40 MG TAB PO SCH (12:58)
[2022-03-13] MEDS: NICOTINE 14 MG/24 HR PATCH TD SCH (12:59)
--- NOTE | 2022-03-13 20:47 | Progress Note ---
Assessment and Plan Assessment and plan: 56 YO Male with COPD on Home Oxygen @4l VIA NC, MDD, ROHIT, ETOH Dependence, Nicotine Dependence presents to ED for evaluation of diminished cognition and syncope. Patient also reports abdominal discomfort over the last 4 days. Patient was found down and unresponsive. EMS was notified and upon arrival the patient was found to be in distress and treated with 2 mg of Narcan with improvement in symptoms. Patient transported to [facility] for further care and evaluation of the aforementioned symptoms. The patient was seen and evaluated in the emergency department. All lab and imaging studies reviewed. Patient admitted with diagnosis of delirium tremens, alcohol withdrawal syndrome, volume depletion, as well as metabolic encephalopathy. Delirium tremens Alcohol withdrawal syndrome Polysubstance abuse COPD, compensated Volume depletion Nicotine dependence Major depression Generalized anxiety disorder 03/12/2022. The patient's most recent CIWA score was 9. Patient continues to be tremulous and unsteady. Continue CIWA protocol. Patient denies any suicidal ideation in the last 10 months. Psychiatry reports that the patient is being seen by outpatient psychiatry and is compliant with medications zoloft 100 mg qd and xanax qd. Patient denies SI HI AVH at this time. Patient reports interest in reducing alcohol intake and entering alcohol rehabilitation program. UDS was also positive for amphetamines. 03/13; continues to require CIWA medications Closely monitor History Interval history: I have seen and examined the patient at the bedside Patient is admitted with alcohol withdrawal symptoms On CIWA protocol Continues to have tremulousness and anxiety Vital signs noted Hospitalist Physical - Constitutional Vitals: Temp Pulse Resp BP Pulse Ox 98.9 F 103 H 18 152/85 96 03/13/22 18:24 03/13/22 18:24 03/13/22 18:24 03/13/22 18:24 03/13/22 18:24 General appearance: Present: no acute distress, well-nourished, other (Tremulousness and agitation) - EENT Eyes: Present: PERRL - Neck Neck: Present: supple, normal ROM - Respiratory Respiratory effort: normal Respiratory: bilateral: diminished, negative: rales, rhonchi, wheezing - Cardiovascular Rhythm: regular Heart Sounds: Present: S1 & S2 - Extremities Extremities: no ischemia, No edema - Abdominal General gastrointestinal: soft, non-tender, non-distended, normal bowel sounds Results - Labs CBC & Chem 7: 03/11/22 06:03 03/12/22 05:26 Labs: Laboratory Last Values WBC 6.4 K/mm3 (4.5-11.0) 03/11/22 06:03 RBC 3.90 M/mm3 (3.65-5.03) 03/11/22 06:03 Hgb 12.2 gm/dl (11.8-15.2) 03/11/22 06:03 Hct 38.0 % (35.5-45.6) 03/11/22 06:03 MCV 97 fl (84-94) H 03/11/22 06:03 MCH 31 pg (28-32) 03/11/22 06:03 MCHC 32 % (32-34) 03/11/22 06:03 RDW 19.8 % (13.2-15.2) H 03/11/22 06:03 Plt Count 202 K/mm3 (140-440) 03/11/22 06:03 Lymph % (Auto) 16.5 % (13.4-35.0) 03/11/22 06:03 [place] % (Auto) 9.5 % (0.0-7.3) H 03/11/22 06:03 Eos % (Auto) 0.4 % (0.0-4.3) 03/11/22 06:03 Baso % (Auto) 0.3 % (0.0-1.8) 03/11/22 06:03 Lymph # (Auto) 1.1 K/mm3 (1.2-5.4) L 03/11/22 06:03 [place] # (Auto) 0.6 K/mm3 (0.0-0.8) 03/11/22 06:03 Eos # (Auto) 0.0 K/mm3 (0.0-0.4) 03/11/22 06:03 Baso # (Auto) 0.0 K/mm3 (0.0-0.1) 03/11/22 06:03 Seg Neutrophils % 73.3 % (40.0-70.0) H 03/11/22 06:03 Seg Neutrophils # 4.7 K/mm3 (1.8-7.7) 03/11/22 06:03 Sodium 140 mmol/L (137-145) 03/12/22 05:26 Potassium 4.4 mmol/L (3.6-5.0) 03/12/22 05:26 Chloride 99.1 mmol/L (98-107) 03/12/22 05:26 Carbon Dioxide 33 mmol/L (22-30) H 03/12/22 05:26 Anion Gap 12 mmol/L 03/12/22 05:26 BUN 9 mg/dL (9-20) 03/12/22 05:26 Creatinine 0.5 mg/dL (0.8-1.3) L 03/12/22 05:26 Estimated GFR > 60 ml/min 03/12/22 05:26 BUN/Creatinine Ratio 18 % 03/12/22 05:26 Glucose 96 mg/dL (75-100) 03/12/22 05:26 Calcium 8.0 mg/dL (8.4-10.2) L 03/12/22 05:26 Total Bilirubin 0.20 mg/dL (0.1-1.2) 03/11/22 07:32 Direct Bilirubin < 0.2 mg/dL (0-0.2) 03/11/22 07:32 Indirect Bilirubin 0.0 mg/dL 03/11/22 07:32 AST 60 units/L (5-40) H 03/11/22 07:32 ALT 55 units/L (7-56) 03/11/22 07:32 Alkaline Phosphatase 99 units/L (35-129) 03/11/22 07:32 Total Protein 5.4 g/dL (6.3-8.2) L 03/11/22 07:32 Albumin 3.7 g/dL (3.9-5) L 03/11/22 07:32 Albumin/Globulin Ratio 2.2 % 03/11/22 07:32 Lipase 20 units/L (13-60) 03/11/22 07:32 Urine Color Straw (Yellow) 03/11/22 02:22 Urine Turbidity Clear (Clear) 03/11/22 02:22 Specific [place] (Man) 1.015 (1.003-1.030) 03/11/22 02:22 Ur Protein (Man) 1+ mg/dL (Negative) 03/11/22 02:22 Ur Ketones (Man) Negative (Negative) 03/11/22 02:22 Ur Nitrite (Man) Negative (Negative) 03/11/22 02:22 Urine Bilirubin (Man) Negative (Negative) 03/11/22 02:22 Leukocyte Esterase (Man) Negative (Negative) 03/11/22 02:22 Urine WBC (Auto) 3.0 /HPF (0.0-6.0) 03/11/22 02:22 Urine RBC (Auto) 1.0 /HPF (0.0-6.0) 03/11/22 02:22 U Epithel Cells (Auto) < 1.0 /HPF (0-13.0) 03/11/22 02:22 Urine RBC (Manual) Negative (Negative) 03/11/22 02:22 Granular Casts 6 /LPF 03/11/22 02:22 Urine Mucus Few /HPF 03/11/22 02:22 Salicylates 1.9 mg/dL (2.8-20.0) L 03/11/22 06:03 Urine Opiates Screen Presumptive negative 03/11/22 02:22 Urine Methadone Screen Presumptive negative 03/11/22 02:22 Acetaminophen 5.0 ug/mL (10.0-30.0) L 03/11/22 06:03 Ur Barbiturates Screen Presumptive negative 03/11/22 02:22 Ur Phencyclidine Scrn Presumptive negative 03/11/22 02:22 Ur Amphetamines Screen Presumptive positive 03/11/22 02:22 U Benzodiazepines Scrn Presumptive positive 03/11/22 02:22 Urine Cocaine Screen Presumptive negative 03/11/22 02:22 U Marijuana (THC) Screen Presumptive negative 03/11/22 02:22 Drugs of Abuse Note Disclamer 03/11/22 02:22 Plasma/Serum Alcohol 0.13 % (0-0.07) H 03/11/22 06:03 So/IV: Voiding Method Condom Catheter Active Medications - Current Medications Current Medications: Generic Name Dose Route Start Last Admin Trade Name Freq PRN Reason Stop Dose Admin Acetaminophen 650 mg 03/11/22 12:08 Acetaminophen 325 Mg Tab PO Q4H PRN Pain MILD(1-3)/Fever >100.5/[place] Albuterol 2.5 mg 03/11/22 12:08 03/13/22 18:30 Albuterol 2.5 Mg/3 Ml Nebu IH 2.5 mg Q4H PRN Administration Shortness Of Breath Amlodipine Besylate 10 mg 03/12/22 10:00 03/13/22 12:56 Amlodipine 10 Mg Tab PO 10 mg DAILY CHICA Administration Buspirone HCl 7.5 mg 03/11/22 22:00 03/13/22 12:58 Buspirone 5 Mg Tab PO 7.5 mg BID CHICA Administration Folic Acid 1 mg 03/12/22 10:00 03/13/22 12:58 Folic Acid 1 Mg Tab PO 1 mg QDAY CHICA Administration Gabapentin 300 mg 03/11/22 14:00 03/13/22 18:36 Gabapentin 300 Mg Cap PO 300 mg Q8HR CHICA Administration Hydromorphone HCl 0.5 mg 03/11/22 12:08 Hydromorphone 0.5 Mg/0.5 Ml Inj IV Q13H PRN Pain , Severe (7-10) Sodium Chloride 1,000 mls @ 150 mls/hr 03/11/22 13:00 03/12/22 06:39 Nacl 0.9% 1000 Ml IV 150 mls/hr DIRECT CHICA Administration Lorazepam 2 mg 03/11/22 12:12 03/13/22 18:34 Lorazepam 2 Mg/Ml Vial IV 2 mg Q1H PRN Administration CIWA-Ar 8-15 Lorazepam 4 mg 03/11/22 12:12 03/11/22 16:28 Lorazepam 2 Mg/Ml Vial IV 4 mg Q1H PRN Administration CIWA-Ar 16-25 Nicotine 14 mg 03/11/22 13:00 03/13/22 12:59 Nicotine 14 Mg/24 Hr Patch TD 14 mg DAILY CHICA Administration Ondansetron HCl 4 mg 03/11/22 12:08 Ondansetron 4 Mg/2 Ml Inj IV Q8H PRN Nausea And Vomiting Oxycodone/Acetaminophen 1 tab 03/11/22 12:08 03/13/22 18:35 Oxycodone /Acetaminophen 5-325mg Tab PO 1 tab Q16H PRN Administration Pain, Moderate (4-6) Pantoprazole Sodium 40 mg 03/12/22 10:00 03/13/22 12:58 Pantoprazole 40 Mg Tab PO 40 mg QDAY CHICA Administration Paroxetine HCl 20 mg 03/12/22 10:00 03/13/22 12:58 Paroxetine 20 Mg Tab PO 20 mg DAILY CHICA Administration Sertraline HCl 100 mg 03/14/22 10:00 Sertraline 100 Mg Tab PO QDAY CHICA Sodium Chloride 10 ml 03/11/22 22:00 03/13/22 12:56 Sodium Chloride 0.9% 10 Ml Flush Syringe IV 10 ml BID CHICA Administration Sodium Chloride 10 ml 03/11/22 12:08 Sodium Chloride 0.9% 10 Ml Flush Syringe IV PRN PRN LINE FLUSH Trazodone HCl 100 mg 03/11/22 22:00 03/12/22 22:03 Trazodone 100 Mg Tab PO 100 mg QHS CHICA Administration
[2022-03-13] MEDS: traZODone 100 MG TAB PO SCH (22:42)
[2022-03-14] MEDS: GABAPENTIN 300 MG CAP PO SCH ×3 (05:49→22:15)
[2022-03-14] MEDS: SODIUM CHLORIDE 0.9% 1000 ML 1,000 ML IV SCH (05:52)
[2022-03-14] MEDS: NICOTINE 14 MG/24 HR PATCH TD SCH (10:21)
[2022-03-14] MEDS: PARoxetine 20 MG TAB PO SCH (10:22)
[2022-03-14] MEDS: amLODIPine 10 MG TAB PO SCH (10:22)
[2022-03-14] MEDS: oxyCODONE /ACETAMINOPHEN 5-325MG TAB PO PRN (10:22)
[2022-03-14] MEDS: FOLIC ACID 1 MG TAB PO SCH (10:22)
[2022-03-14] MEDS: SERTRALINE 100 MG TAB PO SCH (10:23)
[2022-03-14] MEDS: PANTOPRAZOLE 40 MG TAB PO SCH (10:23)
[2022-03-14] MEDS: busPIRone 5 MG TAB PO SCH ×2 (10:24→22:16)
[2022-03-14] MEDS: LORazepam 2 MG/ML VIAL IV PRN ×2 (10:29→20:00)
[2022-03-14] MEDS: ACETAMINOPHEN 325 MG TAB PO PRN (15:20)
--- NOTE | 2022-03-14 20:23 | Progress Note ---
Assessment and Plan Assessment and plan: 6 YO Male with COPD on Home Oxygen @4l VIA NC, MDD, ROHIT, ETOH Dependence, Nicotine Dependence presents to ED for evaluation of diminished cognition and syncope. Patient also reports abdominal discomfort over the last 4 days. Patient was found down and unresponsive. EMS was notified and upon arrival the patient was found to be in distress and treated with 2 mg of Narcan with improvement in symptoms. Patient transported to [facility] for further care and evaluation of the aforementioned symptoms. The patient was seen and evaluated in the emergency department. All lab and imaging studies reviewed. Patient admitted with diagnosis of delirium tremens, alcohol withdrawal syndrome, volume depletion, as well as metabolic encephalopathy. Delirium tremens Alcohol withdrawal syndrome Polysubstance abuse COPD, compensated Volume depletion Nicotine dependence Major depression Generalized anxiety disorder 03/12/2022. The patient's most recent CIWA score was 9. Patient continues to be tremulous and unsteady. Continue CIWA protocol. Patient denies any suicidal ideation in the last 10 months. Psychiatry reports that the patient is being seen by outpatient psychiatry and is compliant with medications zoloft 100 mg qd and xanax qd. Patient denies SI HI AVH at this time. Patient reports interest in reducing alcohol intake and entering alcohol rehabilitation program. UDS was also positive for amphetamines. 03/13; continues to require CIWA medications Closely monitor 03/14; patient feels slightly better Recommend Ativan as needed for agitation PT OT Possible discharge in 1 to 2 days if stable History Interval history: I have seen and examined the patient at the bedside Patient's chart and medications reviewed Patient feels slightly better very minimal tremulousness No no agitation or seizures Vital signs noted Hospitalist Physical - Constitutional Vitals: Temp Pulse Resp BP Pulse Ox 98.0 F 97 H 16 147/76 96 03/14/22 19:04 03/14/22 19:04 03/14/22 19:04 03/14/22 19:04 03/14/22 19:04 General appearance: Present: no acute distress, well-nourished, other (Tremulousness and agitation) - EENT Eyes: Present: PERRL, EOM intact - Neck Neck: Present: supple, normal ROM - Respiratory Respiratory effort: normal Respiratory: bilateral: diminished, negative: rales, rhonchi, wheezing - Cardiovascular Rhythm: regular Heart Sounds: Present: S1 & S2 - Extremities Extremities: no ischemia, No edema - Abdominal General gastrointestinal: soft, non-tender, non-distended, normal bowel sounds - Integumentary Integumentary: Present: clear, warm - Psychiatric Psychiatric: appropriate mood/affect, cooperative - Neurologic Neurologic: moves all extremities Results - Labs CBC & Chem 7: 03/11/22 06:03 03/12/22 05:26 Labs: Laboratory Last Values WBC 6.4 K/mm3 (4.5-11.0) 03/11/22 06:03 RBC 3.90 M/mm3 (3.65-5.03) 03/11/22 06:03 Hgb 12.2 gm/dl (11.8-15.2) 03/11/22 06:03 Hct 38.0 % (35.5-45.6) 03/11/22 06:03 MCV 97 fl (84-94) H 03/11/22 06:03 MCH 31 pg (28-32) 03/11/22 06:03 MCHC 32 % (32-34) 03/11/22 06:03 RDW 19.8 % (13.2-15.2) H 03/11/22 06:03 Plt Count 202 K/mm3 (140-440) 03/11/22 06:03 Lymph % (Auto) 16.5 % (13.4-35.0) 03/11/22 06:03 [place] % (Auto) 9.5 % (0.0-7.3) H 03/11/22 06:03 Eos % (Auto) 0.4 % (0.0-4.3) 03/11/22 06:03 Baso % (Auto) 0.3 % (0.0-1.8) 03/11/22 06:03 Lymph # (Auto) 1.1 K/mm3 (1.2-5.4) L 03/11/22 06:03 [place] # (Auto) 0.6 K/mm3 (0.0-0.8) 03/11/22 06:03 Eos # (Auto) 0.0 K/mm3 (0.0-0.4) 03/11/22 06:03 Baso # (Auto) 0.0 K/mm3 (0.0-0.1) 03/11/22 06:03 Seg Neutrophils % 73.3 % (40.0-70.0) H 03/11/22 06:03 Seg Neutrophils # 4.7 K/mm3 (1.8-7.7) 03/11/22 06:03 Sodium 140 mmol/L (137-145) 03/12/22 05:26 Potassium 4.4 mmol/L (3.6-5.0) 03/12/22 05:26 Chloride 99.1 mmol/L (98-107) 03/12/22 05:26 Carbon Dioxide 33 mmol/L (22-30) H 03/12/22 05:26 Anion Gap 12 mmol/L 03/12/22 05:26 BUN 9 mg/dL (9-20) 03/12/22 05:26 Creatinine 0.5 mg/dL (0.8-1.3) L 03/12/22 05:26 Estimated GFR > 60 ml/min 03/12/22 05:26 BUN/Creatinine Ratio 18 % 03/12/22 05:26 Glucose 96 mg/dL (75-100) 03/12/22 05:26 Calcium 8.0 mg/dL (8.4-10.2) L 03/12/22 05:26 Total Bilirubin 0.20 mg/dL (0.1-1.2) 03/11/22 07:32 Direct Bilirubin < 0.2 mg/dL (0-0.2) 03/11/22 07:32 Indirect Bilirubin 0.0 mg/dL 03/11/22 07:32 AST 60 units/L (5-40) H 03/11/22 07:32 ALT 55 units/L (7-56) 03/11/22 07:32 Alkaline Phosphatase 99 units/L (35-129) 03/11/22 07:32 Total Protein 5.4 g/dL (6.3-8.2) L 03/11/22 07:32 Albumin 3.7 g/dL (3.9-5) L 03/11/22 07:32 Albumin/Globulin Ratio 2.2 % 03/11/22 07:32 Lipase 20 units/L (13-60) 03/11/22 07:32 Urine Color Straw (Yellow) 03/11/22 02:22 Urine Turbidity Clear (Clear) 03/11/22 02:22 Specific [place] (Man) 1.015 (1.003-1.030) 03/11/22 02:22 Ur Protein (Man) 1+ mg/dL (Negative) 03/11/22 02:22 Ur Ketones (Man) Negative (Negative) 03/11/22 02:22 Ur Nitrite (Man) Negative (Negative) 03/11/22 02:22 Urine Bilirubin (Man) Negative (Negative) 03/11/22 02:22 Leukocyte Esterase (Man) Negative (Negative) 03/11/22 02:22 Urine WBC (Auto) 3.0 /HPF (0.0-6.0) 03/11/22 02:22 Urine RBC (Auto) 1.0 /HPF (0.0-6.0) 03/11/22 02:22 U Epithel Cells (Auto) < 1.0 /HPF (0-13.0) 03/11/22 02:22 Urine RBC (Manual) Negative (Negative) 03/11/22 02:22 Granular Casts 6 /LPF 03/11/22 02:22 Urine Mucus Few /HPF 03/11/22 02:22 Salicylates 1.9 mg/dL (2.8-20.0) L 03/11/22 06:03 Urine Opiates Screen Presumptive negative 03/11/22 02:22 Urine Methadone Screen Presumptive negative 03/11/22 02:22 Acetaminophen 5.0 ug/mL (10.0-30.0) L 03/11/22 06:03 Ur Barbiturates Screen Presumptive negative 03/11/22 02:22 Ur Phencyclidine Scrn Presumptive negative 03/11/22 02:22 Ur Amphetamines Screen Presumptive positive 03/11/22 02:22 U Benzodiazepines Scrn Presumptive positive 03/11/22 02:22 Urine Cocaine Screen Presumptive negative 03/11/22 02:22 U Marijuana (THC) Screen Presumptive negative 03/11/22 02:22 Drugs of Abuse Note Disclamer 03/11/22 02:22 Plasma/Serum Alcohol 0.13 % (0-0.07) H 03/11/22 06:03 So/IV: Voiding Method Condom Catheter Active Medications - Current Medications Current Medications: Generic Name Dose Route Start Last Admin Trade Name Freq PRN Reason Stop Dose Admin Acetaminophen 650 mg 03/11/22 12:08 03/14/22 15:20 Acetaminophen 325 Mg Tab PO 650 mg Q4H PRN Administration Pain MILD(1-3)/Fever >100.5/[place] Albuterol 2.5 mg 03/11/22 12:08 03/13/22 18:30 Albuterol 2.5 Mg/3 Ml Nebu IH 2.5 mg Q4H PRN Administration Shortness Of Breath Amlodipine Besylate 10 mg 03/12/22 10:00 03/14/22 10:22 Amlodipine 10 Mg Tab PO 10 mg DAILY CHICA Administration Buspirone HCl 7.5 mg 03/11/22 22:00 03/14/22 10:24 Buspirone 5 Mg Tab PO 7.5 mg BID CHICA Administration Folic Acid 1 mg 03/12/22 10:00 03/14/22 10:22 Folic Acid 1 Mg Tab PO 1 mg QDAY CHICA Administration Gabapentin 300 mg 03/11/22 14:00 03/14/22 15:11 Gabapentin 300 Mg Cap PO 300 mg Q8HR CHICA Administration Hydromorphone HCl 0.5 mg 03/11/22 12:08 Hydromorphone 0.5 Mg/0.5 Ml Inj IV Q13H PRN Pain , Severe (7-10) Sodium Chloride 1,000 mls @ 150 mls/hr 03/11/22 13:00 03/14/22 05:52 Nacl 0.9% 1000 Ml IV 150 mls/hr DIRECT CHICA Administration Lorazepam 2 mg 03/11/22 12:12 03/14/22 20:00 Lorazepam 2 Mg/Ml Vial IV 2 mg Q1H PRN Administration [facility]-Ar 8-15 Lorazepam 4 mg 03/11/22 12:12 03/11/22 16:28 Lorazepam 2 Mg/Ml Vial IV 4 mg Q1H PRN Administration [facility]-Ar 16-25 Nicotine 14 mg 03/11/22 13:00 03/14/22 10:21 Nicotine 14 Mg/24 Hr Patch TD 14 mg DAILY CHICA Administration Ondansetron HCl 4 mg 03/11/22 12:08 Ondansetron 4 Mg/2 Ml Inj IV Q8H PRN Nausea And Vomiting Oxycodone/Acetaminophen 1 tab 03/11/22 12:08 03/14/22 10:22 Oxycodone /Acetaminophen 5-325mg Tab PO 1 tab Q16H PRN Administration Pain, Moderate (4-6) Pantoprazole Sodium 40 mg 03/12/22 10:00 03/14/22 10:23 Pantoprazole 40 Mg Tab PO 40 mg QDAY CHICA Administration Paroxetine HCl 20 mg 03/12/22 10:00 03/14/22 10:22 Paroxetine 20 Mg Tab PO 20 mg DAILY CHICA Administration Sertraline HCl 100 mg 03/14/22 10:00 03/14/22 10:23 Sertraline 100 Mg Tab PO 100 mg QDAY CHICA Administration Sodium Chloride 10 ml 03/11/22 22:00 03/14/22 10:24 Sodium Chloride 0.9% 10 Ml Flush Syringe IV 10 ml BID CHICA Administration Sodium Chloride 10 ml 03/11/22 12:08 Sodium Chloride 0.9% 10 Ml Flush Syringe IV PRN PRN LINE FLUSH Trazodone HCl 100 mg 03/11/22 22:00 03/13/22 22:42 Trazodone 100 Mg Tab PO 100 mg QHS CHICA Administration
[2022-03-14] MEDS ORDERED: LORazepam 2 MG/ML VIAL IV PRN (20:27)
[2022-03-14] MEDS: ALBUTEROL 2.5 MG/3 ML NEBU IH PRN (20:57)
[2022-03-14] MEDS: traZODone 100 MG TAB PO SCH (22:16)
[2022-03-15] MEDS: GABAPENTIN 300 MG CAP PO SCH ×2 (06:17→13:29)
[2022-03-15 06:43] LABS: Blood Urea Nitrogen 6 mg/dL (9-20); Calcium 9.6 mg/dL (8.4-10.2); Hemolysis Index 56
[2022-03-15 07:43] LABS: BUN/Creatinine Ratio 12
[2022-03-15 08:47] VITALS: BP 156/88
[2022-03-15] MEDS: busPIRone 5 MG TAB PO SCH (10:37)
[2022-03-15] MEDS: SERTRALINE 100 MG TAB PO SCH (10:38)
[2022-03-15] MEDS: amLODIPine 10 MG TAB PO SCH (10:38)
[2022-03-15] MEDS: PANTOPRAZOLE 40 MG TAB PO SCH (10:39)
[2022-03-15] MEDS: NICOTINE 14 MG/24 HR PATCH TD SCH (10:39)
[2022-03-15] MEDS: FOLIC ACID 1 MG TAB PO SCH (10:39)
[2022-03-15] MEDS: PARoxetine 20 MG TAB PO SCH (10:40)
[2022-03-15] MEDS: ACETAMINOPHEN 325 MG TAB PO PRN (11:03)
[2022-03-15] MEDS ORDERED: ALPRAZolam 0.25 MG TAB PO ONE (12:37)
--- NOTE | 2022-03-15 15:10 | Discharge Summary ---
Providers - Providers Date of Admission: 03/11/22 14:09 Date of discharge: 03/15/22 Attending physician: PUJA OSORIO 03/12/22 05:49 Consult to Case Management [CONS] Routine Services Needed at Discharge: Other Notified:: no 03/14/22 20:28 Occupational Therapy Evaluate and Treat [CONS] Routine Comment: Reason For Exam: Unsteady gait/evaluate and treat/DC needs Physical Therapy Evaluation and Treat [CONS] Routine Comment: Reason For Exam: Unsteady gait/evaluate and treat/DC needs Primary care physician: OTOLARYNGOLOGY PHYSICIAN Hospitalization Reason for admission: Acute metabolic encephalopathy/delirium tremens Condition: Stable Pertinent studies: Chest x-ray; hyperinflation consistent with COPD, no acute superimposed disease noted CT abdomen and pelvis no acute abdominal pelvic process demonstrated, specifically no evidence of to indicate appendicitis Indeterminate left adrenal nodule possibly an adenoma, routine adrenal protocol CT follow-up is recommended to complete the evaluation Hospital course: 56 YO Male patient with past medical history of COPD and chronic respiratory failure on Home Oxygen @4l VIA [place] dependent, MDD, ROHIT, ETOH Dependence, Nicotine Dependence presents to ED for evaluation of diminished cognition and syncope. Patient also reports abdominal discomfort over the last 4 days. Patient was found down and unresponsive. EMS was notified and upon arrival the patient was found to be in distress and treated with 2 mg of Narcan with improvement in symptoms. Patient transported to [facility] for further care and evaluation of the aforementioned symptoms. The patient was seen and evaluated in the emergency department. All lab and imaging studies reviewed. Patient admitted with diagnosis of delirium tremens, alcohol withdrawal syndrome, volume depletion, as well as metabolic encephalopathy. Patient was admitted to the hospital placed on CIWA protocol, closely monitored for any new episodes of seizure, multiple electrolyte imbalances were corrected continued his home oxygen at 4 L of nasal cannula oxygen due to chronic COPD and chronic respiratory failure. Patient is on oxygen dependent has 4 L of continuous nasal cannula oxygen at home which continued here. Strongly advised and counseled to quit alcohol, polysubstance use, patient verbalized understanding also advised to join drug rehabilitation upon discharge, patient verbalized understanding Patient also has major depression and generalized anxiety disorder, patient denies any suicidal thoughts or ideation, psychiatry has evaluated the patient and optimized the medications, did not recommend inpatient psych management. Patient's symptoms slowly but gradually improved Today patient is comfortable, no new complaints, vital signs stable, physical examination prior to discharge did not show any new changes Patient is hemodynamically and clinically stable for discharge Again patient was counseled smoking cessation, and asked to quit polysubstance abuse including alcohol. Patient verbalized understanding and was interested in outpatient drug rehabilitation Patient already has home oxygen at 4 L. Case management assisting with discharge planning Stable at discharge Discharge diagnosis: Delirium tremens Alcohol withdrawal syndrome Metabolic encephalopathy present on admission/ Polysubstance abuse COPD, compensated Chronic respiratory failure continuous home O2 dependent at 4 L NC' Volume depletion Nicotine dependence Major depression Generalized anxiety disorder Hemodynamically and clinically stable at discharge DC with home health services Disposition: HOME HEALTH CARE SERVICE Final Discharge Diagnosis (Prints w/discharge instructions): Delirium tremens. Alcohol withdrawal syndrome. Polysubstance abuse. COPD, compensated. Chronic respiratory failure /home O2 dependent 4 L.NC. Volume depletion. Nicotine dependence. Major depression. Generalized anxiety disorder. Hypomagnesemia Time spent for discharge: 35 minutes Core Measure Documentation - Palliative Care Palliative Care/ Comfort Measures: Not Applicable - Core Measures Any of the following diagnoses?: none Exam - Constitutional Vitals: Temp Pulse Resp BP Pulse Ox 98.0 F 85 22 156/88 97 03/15/22 08:08 03/15/22 08:54 03/15/22 11:03 03/15/22 08:08 03/15/22 09:12 General appearance: Present: no acute distress, well-nourished - EENT Eyes: Present: PERRL, EOM intact - Neck Neck: Present: supple, normal ROM - Respiratory Respiratory effort: normal Respiratory: bilateral: diminished, negative: rales, rhonchi, wheezing - Cardiovascular Rhythm: regular Heart Sounds: Present: S1 & S2 - Extremities Extremities: no ischemia, No edema - Abdominal General gastrointestinal: Present: soft, non-tender, non-distended, normal bowel sounds - Integumentary Integumentary: Present: clear, warm - Musculoskeletal Musculoskeletal: strength equal bilaterally - Psychiatric Psychiatric: appropriate mood/affect, cooperative - Neurologic Neurologic: moves all extremities Plan Activity: advance as tolerated, fall precautions Diet: other (Cardiac diet as tolerated) Special Instructions: physical therapy (Home PT) Additional Instructions: Fall precautions. Strongly advised to quit alcohol intake. Advised to seek alcohol rehabilitation. Also advised attend alcohol Anonymous support group. If you have worsening symptoms contact MD or go to the nearest emergency room as needed. Do not drink and drive or operate heavy machinery. You have incidental finding of adrenal adenoma; follow-up with primary care physician for periodic imaging study to monitor the adenoma. Follow up with: PRIMARY CARE,MD [Primary Care Provider] - 3-5 Days Prescriptions: Folic Acid [Folvite] 1 mg PO QDAY #30 tablet Albuterol Mdi (or & Nicu Only) [ProAir HFA Inhaler] 2 puff IH QID PRN #8.5 gram PRN Reason: Shortness Of Breath Pantoprazole [Protonix TAB] 40 mg PO QDAY #14 tablet Thiamine [Vitamin B-1] 100 mg PO QDAY #30 tablet
== END 2022-03-15 16:51 | disposition home health service (06) | DRG 640 ==
LOC: ED 02:22 → 4A 14:09
PROVIDERS: ADMIT Internal Medicine; ATTEND Internal Medicine
DX: E86.9 Volume depletion, unspecified (principal); G93.41 Metabolic encephalopathy; F10.231 Alcohol dependence with withdrawal delirium; F17.213 Nicotine dependence, cigarettes, with withdrawal; J96.10 Chronic respiratory failure, unspecified whether with hypoxia or hypercapnia; E83.42 Hypomagnesemia; J44.9 Chronic obstructive pulmonary disease, unspecified; F32.9 Major depressive disorder, single episode, unspecified; I10 Essential (primary) hypertension; F41.1 Generalized anxiety disorder
CPT/HCPCS: 36415; 71045; 74177; 80048; 80076; 80307; 80320; 81001; 83690; 83735; 84100; 85025; 94640; 94644; 94760; 96365; 96366; 96375; 99285; G0378; J3490; G0480; J2060; J2405; J3411; J7030; Q9967